=== PATIENT | female | born 1970 | race Caucasian/White ===

== ENCOUNTER 2021-06-14 17:43 | Emergency (ER) | payer BC ==
[2021-06-14 17:49] VITALS: BP 142/86; PULSE 73; RESP 20; TEMP 97.2
[2021-06-14] MEDS ORDERED: DIPH,PERTUS(ACELL)TETVAC-LF 0.5 ML VIAL IM ONE (18:03)
[2021-06-14] MEDS ORDERED: LIDOCAINE 1% INJ 10MG/ML (20 ML MDV) SQ ONE (18:03)
[2021-06-14] MEDS ORDERED: BACITRACIN OINT 1 EACH PACKET TOPICAL ONE (18:03)
--- NOTE | 2021-06-14 18:07 | ED ---
General Adult HPI - General Chief complaint: Wound/Laceration Stated complaint: Finger Lac Time Seen by Provider: 06/14/21 17:52 Source: patient, RN notes reviewed Mode of arrival: ambulatory Limitations: no limitations - History of Present Illness Initial comments: 51-year-old female presents to the emergency department for evaluation of laceration to the second digit of the right hand. Patient states she was using a knife to open packaging on a new knife when it slipped and cut her finger. Patient states her injury occurred approximately one hour ago. Bleeding controlled with direct pressure. Denies any loss of sensation or loss of function. Denies any further injuries. Uncertain of date of last tetanus shot. - Related Data Allergies Allergy/AdvReac Type Severity Reaction Status Date / Time No Known Allergies Allergy Verified 06/14/21 17:49 Review of Systems ROS Statement: Those systems with pertinent positive or pertinent negative responses have been documented in the HPI. ROS Other: All systems not noted in ROS Statement are negative. Past Medical History Past Medical History: No Reported History History of Any Multi-Drug Resistant Organisms: None Reported Past Surgical History: No Surgical Hx Reported Past Psychological History: No Psychological Hx Reported Smoking Status: Never smoker Past Alcohol Use History: None Reported Past Drug Use History: None Reported General Exam Limitations: no limitations (Well-developed, well-nourished female in no acute distress. Initial temperature 97.2, pulse 73, respirations 20, blood pressure 142/86, pulse ox 99% on room air.) General appearance: alert, in no apparent distress Respiratory exam: Present: normal lung sounds bilaterally. Absent: respiratory distress, wheezes, rales, rhonchi, stridor Cardiovascular Exam: Present: regular rate, normal rhythm, normal heart sounds. Absent: systolic murmur, diastolic murmur, rubs, gallop, clicks Right Forearm Wrist exam: Present: normal inspection, full ROM. Absent: tenderness, swelling Hand Wrist exam: Present: full ROM, laceration (1 cm flap laceration to the dorsal surface of the second digit, middle phalanx, on the right hand), other (Flexor and extensor tendons intact; no loss of range of motion or sensation.). Absent: swelling Neuro motor exam: Present: fingers 2-5 abduction intact Vascular: Present: normal capillary refill, radial pulse. Absent: vascular compromise, Pallo Neurological exam: Present: alert, oriented X3, CN II-XII intact Psychiatric exam: Present: normal affect, normal mood Skin exam: Present: warm, dry Course Vital Signs 06/14/21 17:45 Temperature 97.2 F L Pulse Rate 73 Respiratory 20 Rate Blood Pressure 142/86 O2 Sat by Pulse 99 Oximetry Procedures - Laceration Laceration #1 Consent Obtained: verbal consent Indication: laceration Site: hand (2nd digit, middle phalanx, dorsal surface, right hand) Size (cm): 2 Description: flap Depth: simple, single layer Anesthetic Used: lidocaine 1% Anesthesia Technique: nerve block Amount (mls): 2 Pre-repair: wound explored, irrigated extensively Type of Sutures: nylon Size of Sutures: 4-0 Number of Sutures: 2 Technique: simple, interrupted Patient Tolerated Procedure: well, no complications Additional Comments: Digital block was performed. Wound was cleansed and thoroughly irrigated. 2 simple interrupted sutures were placed to secure flap. Bacitracin dressing applied. She tolerated procedure well. Wound care and cleansing reviewed at length with patient. Instructed to have stitches removed in 7-10 days. Patient verbalizes understanding. Medical Decision Making - Medical Decision Making 51-year-old female with no significant past medical history resents to the emergency department for evaluation of wound to the second digit. Upon exam, patient is noted to have a 1.5 cm flap laceration to the dorsal surface of the middle phalanx on the second digit of the right hand. Bleeding was controlled prior to arrival. No loss of range of motion or distal sensation. Injury occurred when using a knife to open a plastic packaging. X-ray of the right hand was obtained showing no acute findings. 2 simple interrupted sutures were placed after thorough wound cleansing. Bacitracin dressing applied. Wound care reviewed at length with patient. Tetanus shot was also updated. Instructed to have sutures out in 7-10 days. Encouraged to follow up with PCP for a wound recheck on Wednesday. Return parameters were discussed in detail. Patient verbalizes understanding and agrees with this plan. Attending: Dr. Parikh. - Radiology Data Radiology results: report reviewed, image reviewed X-ray of the right hand was obtained. Report was reviewed in its entirety. Impression per Dr. Zarco is negative right hand exam. No fracture. Disposition Clinical Impression: Laceration of finger of right hand Disposition: HOME SELF-CARE Condition: Stable Instructions (If sedation given, give patient instructions): Care For Your Stitches (ED), Laceration (ED) Additional Instructions: Keep wound clean and dry for the first 48 hours. Change dressing twice daily; cleansed with mild soap and water. Apply bacitracin. Avoid submerging hand in dirty dishwater or soil. May take Tylenol or Motrin if needed for pain. Follow-up with your PCP for a wound recheck in 48 hours. Sutures to be removed in 7-10 days. Return to the emergency department with any new, worsening, or concerning symptoms. Is patient prescribed a controlled substance at d/c from ED?: No Referrals: Nonstaff,Physician [Primary Care Provider] - 1-2 days Time of Disposition: 19:41
--- NOTE | 2021-06-14 18:56 | XR ---
EXAMINATION TYPE: XR hand limited RT DATE OF EXAM: 06/14/2021 COMPARISON: NONE HISTORY: Laceration TECHNIQUE: 2 views FINDINGS: Metacarpals are intact. Carpal bones are intact. I see no fracture nor dislocation. Fingers appear intact. IMPRESSION: Negative right hand exam. No fracture.
== END 2021-06-14 19:52 | disposition home or self-care (01) ==
LOC: EC 17:43
DX: S61.210A Laceration without foreign body of right index finger without damage to nail, initial encounter (principal); Z23 Encounter for immunization; W26.0XXA Contact with knife, initial encounter; Y92.009 Unspecified place in unspecified non-institutional (private) residence as the place of occurrence of the external cause
CPT/HCPCS: 73120; 90715; 99283; 12001; 90471; J2001